=== PATIENT | male | born 1990 | race Caucasian/White ===

== ENCOUNTER 2017-01-23 10:46 | Emergency (ER) | payer OTHER ==
[~2017-01-23] VITALS: Ht 180.3 cm; Wt 66.0 kg
[~2017-01-23 10:46] MED LIST: DAILY VALUE1 EACH PO; ELAVIL25 MG PO; EXTRA STRENGTH500 M1 PO
[2017-01-23 12:11] LABS: HEMATOCRIT 44.7 % (38.0-50.0); MCHC 32.9 G/DL (30.0-36.0); MCV 85.1 FL (86-99); MEAN PLAT.VOLUME 10.4 uM^3 (9.0-12.4); PLATELET COUNT 237 K/uL (156-360); RBC DIS.WIDTH-CV 12.7 % (11.8-14.6); RBC DIS.WIDTH-SD 39.1 % (39-53); RED BLOOD COUNT 5.25 M/uL (4.00-5.50); WHITE BLOOD COUNT 8.6 K/uL (4.1-10.2)
[2017-01-23 12:23] LABS: CHLORIDE 101 mEq/L (99-109); POTASSIUM 3.8 mEq/L (3.7-5.4); SODIUM 142 mEq/L (136-147)
[2017-01-23 12:24] LABS: GLUCOSE 96 mg/dL (70-99)
[2017-01-23 12:26] LABS: ANION GAP 11 MEQ/L (2-14)
[2017-01-23 12:28] LABS: GFR ESTIMATE (CALCULATED) > 59 mL/min/
[2017-01-23 12:29] LABS: UREA NITROGEN (BUN) 14 mg/dL (9-23)
[2017-01-23 12:59] LABS: ADD MIUA? YES; BILIRUBIN NEGATIVE; BLOOD NEGATIVE; COLOR YELLOW ((YELLOW)); GLUCOSE (STRIP) NEGATIVE; KETONES NEGATIVE; LEUKOCYTES TRACE; NITRITE NEGATIVE; PROTEIN (STRIP) NEGATIVE; SPECIFIC GRAVITY 1.023 (1.000-1.030)
[2017-01-23 13:05] LABS: BACTERIA RARE /HPF; EPITHELIAL CELLS RARE /HPF; MUCUS 1+ /LPF; RED BLOOD CELLS 0-5 /HPF (0-5); UCUL ADDED? NO; WHITE BLOOD CELLS 0-5 /HPF (0-5)
[2017-01-23 13:16] LABS: TOTAL BILIRUBIN 0.4 mg/dL (0.0-1.0)
[2017-01-23 13:17] LABS: ALKALINE PHOSPHATASE 102 IU/L (3-129)
[2017-01-23 13:20] LABS: DIRECT BILIRUBIN 0.1 mg/dL (0.0-0.3)
[2017-01-23 13:21] LABS: LIPASE 18 U/L (1.0-51.0)
[2017-01-23] MEDS ORDERED: ZOFRAN ODT4 MG PO (14:17)
[2017-01-23] MEDS ORDERED: BENTYL10 MG PO (14:17)
[2017-01-23 15:45] VITALS: BP 149/88
== END 2017-01-23 15:46 | disposition home or self-care (01) ==
LOC: EXP 10:46 → EME 10:46 → EXP 15:46
DX: R10.12 Left upper quadrant pain (principal); R11.0 Nausea; F17.200 Nicotine dependence, unspecified, uncomplicated
CPT/HCPCS: 74177; 80048; 80076; 81003; 83690; 85027; 99281; 99284; J1885; J2405; J7030

== ENCOUNTER 2017-02-03 18:49 | Emergency (ER) | payer OTHER ==
[~2017-02-03] VITALS: Ht 180.3 cm; Wt 66.3 kg
[~2017-02-03 18:49] MED LIST changes: +BENTYL10 MG PO; +ZOFRAN ODT4 MG PO
[2017-02-03 19:41] LABS: HEMATOCRIT 47.4 % (38.0-50.0); MCH 28.1 PG (29.0-34.0); MCHC 32.7 G/DL (30.0-36.0); PLATELET COUNT 288 K/uL (156-360); RBC DIS.WIDTH-CV 12.4 % (11.8-14.6); RED BLOOD COUNT 5.51 M/uL (4.00-5.50); WHITE BLOOD COUNT 9.1 K/uL (4.1-10.2)
[2017-02-03 19:52] LABS: CHLORIDE 101 mEq/L (99-109); POTASSIUM 4.5 mEq/L (3.7-5.4); SODIUM 140 mEq/L (136-147)
[2017-02-03 19:54] LABS: GLUCOSE 113 mg/dL (70-99)
[2017-02-03 19:55] LABS: ANION GAP 15 MEQ/L (2-14)
[2017-02-03 19:56] LABS: TOTAL BILIRUBIN 0.4 mg/dL (0.0-1.0)
[2017-02-03 19:57] LABS: ADD MIUA? YES; BILIRUBIN NEGATIVE; BLOOD NEGATIVE; COLOR YELLOW ((YELLOW)); GLUCOSE (STRIP) NEGATIVE; KETONES NEGATIVE; LEUKOCYTES TRACE; NITRITE NEGATIVE; PROTEIN (STRIP) NEGATIVE; SPECIFIC GRAVITY 1.012 (1.000-1.030); UROBILINOGEN 0.2 MG/DL (0.2-1.0)
[2017-02-03 19:59] LABS: ALKALINE PHOSPHATASE 106 IU/L (3-129); GFR ESTIMATE (CALCULATED) > 59 mL/min/; UREA NITROGEN (BUN) 12 mg/dL (9-23)
[2017-02-03 19:59] LABS: BACTERIA NONE SEEN /HPF; EPITHELIAL CELLS NONE SEEN /HPF; MUCUS TRACE /LPF; RED BLOOD CELLS 0-5 /HPF (0-5); UCUL ADDED? NO; WHITE BLOOD CELLS 0-5 /HPF (0-5)
[2017-02-03 20:12] LABS: LIPASE 18 U/L (1.0-51.0)
[2017-02-03] MEDS ORDERED: MOTRIN600 MG PO (20:53)
[2017-02-03 21:24] VITALS: BP 145/95
== END 2017-02-03 21:25 | disposition home or self-care (01) ==
LOC: EME 18:49
DX: K59.00 Constipation, unspecified (principal); R10.9 Unspecified abdominal pain; Z87.442 Personal history of urinary calculi; F17.200 Nicotine dependence, unspecified, uncomplicated
CPT/HCPCS: 74177; 80053; 81003; 83690; 85027; 99281; 99284; J1885; J2270; J2405; J7030

== ENCOUNTER 2017-11-27 13:10 | Emergency (ER) | payer OTHER ==
[~2017-11-27] VITALS: Ht 154.9 cm; Wt 58.2 kg
[~2017-11-27 13:10] MED LIST changes: +MOTRIN600 MG PO
[2017-11-27 14:14] LABS: HEMATOCRIT 47.7 % (38.0-50.0); HEMOGLOBIN 16.6 G/DL (12.5-16.6); MCH 30.5 PG (29.0-34.0); MCHC 34.8 G/DL (30.0-36.0); MCV 87.7 FL (86-99); PLATELET COUNT 243 K/uL (156-360); RBC DIS.WIDTH-CV 11.9 % (11.8-14.6); RED BLOOD COUNT 5.44 M/uL (4.00-5.50); WHITE BLOOD COUNT 12.4 K/uL (4.1-10.2)
[2017-11-27 14:27] LABS: ALBUMIN 4.5 g/dL (3.2-4.8)
[2017-11-27 14:28] LABS: CHLORIDE 99 mEq/L (99-109); POTASSIUM 3.7 mEq/L (3.7-5.4); SODIUM 142 mEq/L (136-147)
[2017-11-27 14:30] LABS: GLUCOSE 129 mg/dL (70-99); TOTAL PROTEIN 7.6 g/dL (6.4-8.3)
[2017-11-27 14:32] LABS: TOTAL BILIRUBIN 2.1 mg/dL (0.0-1.0)
[2017-11-27 14:33] LABS: ALKALINE PHOSPHATASE 201 IU/L (3-129)
[2017-11-27 14:34] LABS: CREATININE 0.7 mg/dL (0.6-1.3); GFR ESTIMATE (CALCULATED) > 59 mL/min/ (58.99-99999)
[2017-11-27 14:35] LABS: AST (GOT) 305 IU/L (2-34); UREA NITROGEN (BUN) 7 mg/dL (9-23)
[2017-11-27 14:36] LABS: ALT (GPT) 145 IU/L (3-49)
[2017-11-27 14:37] LABS: LIPASE 19 U/L (1.0-51.0)
[2017-11-27] MEDS ORDERED: ZOFRAN4 MG PO (17:19)
[2017-11-27 17:54] VITALS: BP 114/81
[2017-11-28 10:31] LABS: HEPATITIS B SURFACE ANTIGEN Nonreactive; HEPATITIS C ANTIBODY Nonreactive
[2017-11-28 10:32] LABS: ANTI-HEPATITIS A VIRUS (IGM) Nonreactive
[2017-11-28 10:33] LABS: ANTI-HEPATITIS B CORE (IGM) Nonreactive
== END 2017-11-27 17:55 | disposition home or self-care (01) ==
LOC: EME 13:10
PROVIDERS: Physician Assistant
DX: R11.2 Nausea with vomiting, unspecified (principal); R74.0 Nonspecific elevation of levels of transaminase and lactic acid dehydrogenase [LDH]; I10 Essential (primary) hypertension; F17.200 Nicotine dependence, unspecified, uncomplicated; Z88.8 Allergy status to other drugs, medicaments and biological substances
CPT/HCPCS: 76705; 80053; 80074; 83690; 85027; 86705; 86709; 86803; 87340; 99281; 99284; J2405; J7030